=== PATIENT | female | born 1955 | race Caucasian/White ===

== ENCOUNTER → 2021-02-17 | Outpatient (CLI) | payer MEDICARE, OTHER, SELFPAY ==
[~2021-02-17] MED LIST: ASPIRIN 325MG325 MG PO; ASPIRIN EC81 MG PO; CARVEDILOL3.125 MG PO; CELEXA 20MG TAB20 MG PO; CILOSTAZOL50 MG PO; CITALOPRAM HBR20 MG PO; CLOPIDOGREL75 MG PO; COZAAR 50MG TAB50 MG PO; LEVOTHYROXINE50 MCG PO; LISINOPRIL10 MG PO; LIVALO4 MG PO; MULTIVITAMINS1 EAC1 PO; NITROGLYCERIN0.4 MG SL; PRAVASTATIN SOD20 MG PO; PROTONIX 40 MG40 M1 PO; ST. JOHN'S WOR300 M1 PO; TOPROL XL 50 MG50 MG PO; VITAMIN D3250 MC2 PO; ZETIA10 MG PO
== END ==
LOC: EXRD 13:33
DX: I65.23 Occlusion and stenosis of bilateral carotid arteries (principal)
CPT/HCPCS: 93880

== ENCOUNTER → 2021-04-22 | Outpatient (CLI) | payer MEDICARE | LOC: HEART 5 09:30 | DX: I25.10 Atherosclerotic heart disease of native coronary artery without angina pectoris (principal); I25.2 Old myocardial infarction | CPT/HCPCS: 93306 ==

== ENCOUNTER → 2022-04-10 | Outpatient (CLI) | payer MEDICARE | LOC: KOH-I 11:29 | DX: Z87.891 Personal history of nicotine dependence (principal) | CPT/HCPCS: 71271 ==

== ENCOUNTER → 2022-04-23 | Outpatient (CLI) | payer MEDICARE | LOC: EXRD 08:08 → US 09:30 → EXRD 09:30 | DX: Z13.820 Encounter for screening for osteoporosis (principal); Z78.0 Asymptomatic menopausal state; Z00.00 Encounter for general adult medical examination without abnormal findings; Z13.6 Encounter for screening for cardiovascular disorders; M85.852 Other specified disorders of bone density and structure, left thigh | CPT/HCPCS: 76706; 77080 ==